=== PATIENT | female | born 1995 | race Asian ===

== ENCOUNTER 2018-07-30 23:48 | Inpatient (IN) | payer MEDICAID ==
[~2018-07-30] VITALS: Ht 152.4 cm; Wt 61.2 kg
[2018-07-31] MEDS ORDERED: SODIUM CHLORIDE 0.9% 1,000 ML IV ONE (00:28)
[2018-07-31] MEDS ORDERED: LEVETIRACETAM 1000MG/100ML 100 ML IV ONE (00:30)
[2018-07-31 01:03] LABS: BASOPHILS % 0.7 % (0.0-2.0); EOSINOPHILS % 5.6 % (0.0-5.0); HEMATOCRIT. 37.6 % (36.0-48.0); HEMOGLOBIN. 12.1 g/dL (12.0-16.0); MEAN CORPUSCULAR HEMOGLOBIN 24.4 pg (28.0-32.0); MEAN PLATELET VOLUME 8.3 fl (7.4-10.4); MONOCYTES % 5.8 % (2.0-8.0); NEUTROPHILS % 59.9 % (40.0-76.0); PLATELET 407 x1000/uL (130-400); RED BLOOD CELL COUNT 4.94 mill/uL (4.2-5.4); RED CELL DISTRIBUTION WIDTH 14.8 % (11.6-14.6)
[2018-07-31 01:06] LABS: CHLORIDE 107 mEq/L (98-107)
[2018-07-31 01:11] LABS: ETHANOL BLOOD < 10 mg/dL
[2018-07-31 01:46] LABS: CLARITY URINE CLEAR (CLEAR); COLOR URINE YELLOW (YELLOW); KETONES URINE NEGATIVE (NEGATIVE); LEUKOCYTE ESTERASE URINE NEGATIVE (NEGATIVE); NITRITE URINE NEGATIVE (NEGATIVE); OCCULT BLOOD URINE NEGATIVE (NEGATIVE); PROTEIN URINE 1+ (NEGATIVE); SPECIFIC GRAVITY URINE 1.009 (1.005-1.030); UROBILINOGEN URINE 0.2 E.U./dL (0.2-1.0)
[2018-07-31 01:55] LABS: *AMPHETAMINES SCREEN URINE NEGATIVE (NEGATIVE); *BENZODIAZEPINES SCREEN URINE NEGATIVE (NEGATIVE); *COCAINE SCREEN URINE NEGATIVE (NEGATIVE)
[2018-07-31 01:56] LABS: CANNABINOID URINE SCREEN NEGATIVE (NEGATIVE); METHADONE URINE SCREEN NEGATIVE (NEGATIVE); OPIATES URINE SCREEN NEGATIVE (NEGATIVE); PHENCYCLIDINE URINE SCREEN NEGATIVE (NEGATIVE)
[2018-07-31 02:00] LABS: *BARBITURATES SCREEN URINE PRESUMTIVE POSITIVE (NEGATIVE)
[2018-07-31] MEDS ORDERED: ONDANSETRON HCL 4MG/2ML INJ IV PRN (15:15)
[2018-07-31] MEDS ORDERED: IPRATROPIUM/ALBUTEROL 0.5-3(2.5)MG/3ML NEB INH PRN (15:15)
[2018-07-31] MEDS ORDERED: LORAZEPAM 2MG/ML CPJ IV PRN (15:15)
[2018-07-31] MEDS ORDERED: CLONIDINE 0.1MG TABLET PO PRN (15:15)
[2018-07-31 15:43] LABS: HCG SCREEN NEGATIVE
[2018-07-31 16:00] VITALS: BP 119/81
[2018-07-31 16:12] VITALS: BP 119/81
[2018-07-31 20:00] VITALS: BP 106/55
[2018-07-31] MEDS: ACETAMINOPHEN 325MG TABLET PO PRN (20:39)
[2018-07-31] MEDS: LEVETIRACETAM 500MG TABLET PO SCH (23:34)
[2018-08-01] VITALS: BP 100/60
[2018-08-01] MEDS ORDERED: POTASSIUM CHLORIDE 20MEQ TABLET SR PO NR
[2018-08-01 04:00] VITALS: BP 111/55
[2018-08-01 06:26] LABS: CHLORIDE 110 mEq/L (98-107)
[2018-08-01 06:50] LABS: BASOPHILS % 0.5 % (0.0-2.0); EOSINOPHILS % 10.1 % (0.0-5.0); HEMATOCRIT. 35.4 % (36.0-48.0); HEMOGLOBIN. 11.5 g/dL (12.0-16.0); MEAN CORPUSCULAR HEMOGLOBIN 24.5 pg (28.0-32.0); MEAN CORPUSCULAR VOLUME 75.9 fL (81.0-99.0); MEAN PLATELET VOLUME 8.1 fl (7.4-10.4); MONOCYTES % 6.8 % (2.0-8.0); NEUTROPHILS % 44.6 % (40.0-76.0); PLATELET 364 x1000/uL (130-400); RED BLOOD CELL COUNT 4.67 mill/uL (4.2-5.4); RED CELL DISTRIBUTION WIDTH 14.8 % (11.6-14.6)
[2018-08-01 08:00] VITALS: BP 104/57
[2018-08-01] MEDS: LEVETIRACETAM 500MG TABLET PO SCH (09:26)
[2018-08-01 12:00] VITALS: BP 123/59
[2018-08-01] MEDS: ACETAMINOPHEN 325MG TABLET PO PRN (12:30)
[2018-08-01 16:30] VITALS: BP 116/71
[2018-08-01 17:13] VITALS: BP 116/71
== END 2018-08-01 17:45 | disposition home or self-care (01) | DRG 53 ==
LOC: ER 23:48 → 8WST 07-31 06:29 → EDBEDREQ 07-31 06:40 → EDBEDREQTM 07-31 06:40 → ENRESERV 07-31 14:34 → 8WST 07-31 17:09
PROVIDERS: ADMIT Internal Medicine; ATTEND Internal Medicine
DX: G40.909 Epilepsy, unspecified, not intractable, without status epilepticus (principal); E87.6 Hypokalemia; J45.909 Unspecified asthma, uncomplicated
CPT/HCPCS: 36415; 70551; 80048; 80061; 80305; 82607; 82746; 82962; 83036; 84443; 84703; 96374; 99285; J1953; J7030